=== PATIENT | male | born 1985 | race Caucasian/White ===

== ENCOUNTER → 2017-08-18 | Outpatient (CLI) | payer MEDICAID ==
[2017-08-18 16:20] LABS: HEMATOCRIT 44.8 % (42.0-52.0); HEMOGLOBIN 15.1 g/dl (13.5-17.5); MEAN CORPUSCULAR HEMOGLOBIN 29.5 pg (27.0-33.0); MEAN CORPUSCULAR HGB CONC 33.7 g/dl (32.0-36.5); MEAN CORPUSCULAR VOLUME 87.7 fl (80.0-96.0); PLATELET COUNT, AUTOMATED 333 10^3/uL (150-450); RED BLOOD COUNT 5.11 10^6/uL (4.30-6.10); RED CELL DISTRIBUTION WIDTH 14.8 % (11.5-14.5); WHITE BLOOD COUNT 10.3 10^3/uL (4.0-10.0)
[2017-08-18 17:08] LABS: ALBUMIN 4.1 GM/DL (3.2-5.2); ALBUMIN/GLOBULIN RATIO 0.89 (1.00-1.93); ALKALINE PHOSPHATASE 80 U/L (45-117); ALT/SGPT 92 U/L (12-78); ANION GAP 7 MEQ/L (8-16); AST/SGOT 24 U/L (7-37); BILIRUBIN,TOTAL 0.6 MG/DL (0.2-1.0); BLOOD UREA NITROGEN 24 MG/DL (7-18); CALCIUM LEVEL 9.1 MG/DL (8.5-10.1); CARBON DIOXIDE LEVEL 25 MEQ/L (21-32); CHLORIDE LEVEL 110 MEQ/L (98-107); CREATININE FOR GFR 1.03 MG/DL (0.70-1.30); GLOMERULAR FILTRATION RATE > 60.0 (>60); GLUCOSE, FASTING 84 MG/DL (70-100); POTASSIUM SERUM 4.4 MEQ/L (3.5-5.1); SODIUM LEVEL 142 MEQ/L (136-145); TOTAL PROTEIN 8.7 GM/DL (6.4-8.2)
[2017-08-18 18:16] LABS: CHLAMYDIA DNA AMPLIFICATION NEGATIVE (NEGATIVE); GC DNA AMPLIFICATION NEGATIVE (NEGATIVE)
[2017-08-19 10:45] LABS: HEPATITIS B SURFACE ANTIGEN NEGATIVE (NEGATIVE)
[2017-08-19 11:09] LABS: HIV 1&2 SCREEN CENTAUR NEGATIVE (NEGATIVE)
[2017-08-19 11:18] LABS: HEPATITIS C VIRUS ABY INDEX > 11.0 INDEX (<0.8)
== END ==
LOC: M LAB 15:21
DX: F11.20 Opioid dependence, uncomplicated (principal)
CPT/HCPCS: 93005

== ENCOUNTER → 2017-08-28 | Outpatient (CLI) | payer MEDICAID ==
[2017-08-28 13:37] LABS: BASO % 0.5 % (0.0-1.0); EOS # 0.3 10^3/uL (0.0-0.50); EOS % 3.8 % (0.0-3.0); HEMATOCRIT 41.1 % (42.0-52.0); HEMOGLOBIN 13.5 g/dl (13.5-17.5); IMMATURE GRANULOCYTE % 0.3 % (0-3.0); LYMPH # 2.3 10^3/uL (1.5-4.5); LYMPH % 29.6 % (24.0-44.0); MEAN CORPUSCULAR HEMOGLOBIN 29.3 pg (27.0-33.0); MEAN CORPUSCULAR HGB CONC 32.8 g/dl (32.0-36.5); MEAN CORPUSCULAR VOLUME 89.3 fl (80.0-96.0); MONO # 0.8 10^3/uL (0.0-0.8); MONO % 10.9 % (0.0-5.0); NEUTROPHILS # 4.2 10^3/uL (1.8-7.7); NEUTROPHILS % 54.9 % (36.0-66.0); PLATELET COUNT, AUTOMATED 263 10^3/uL (150-450); WHITE BLOOD COUNT 7.6 10^3/uL (4.0-10.0)
[2017-08-28 13:43] LABS: APPEARANCE, URINE CLEAR (CLEAR); BACTERIA, URINE AUTO NEGATIVE (NEGATIVE); BILIRUBIN, URINE AUTO NEGATIVE (NEGATIVE); BLOOD, URINE BLOOD NEGATIVE (NEGATIVE); COLOR, URINE YELLOW (YELLOW); GLUCOSE, URINE (UA) AUTO NEGATIVE (NEGATIVE); KETONE, URINE AUTO NEGATIVE (NEGATIVE); LEUKOCYTE ESTERASE, URINE AUTO NEGATIVE (NEGATIVE); MUCUS, URINE SMALL (NEGATIVE); NITRITE, URINE AUTO NEGATIVE (NEGATIVE); PROTEIN, URINE AUTO NEGATIVE (NEGATIVE); RBC, URINE AUTO 2 /HPF (0-3); SPECIFIC GRAVITY URINE AUTO 1.019 (1.002-1.035); SQUAMOUS EPITHELIAL CELL UR AU 0 /HPF (0-6); UROBILINOGEN, URINE AUTO 0.2 mg/dL (0.0-2.0); WBC, URINE AUTO 3 /HPF (0-3)
[2017-08-28 14:07] LABS: ALBUMIN 3.8 GM/DL (3.2-5.2); ALKALINE PHOSPHATASE 65 U/L (45-117); ALT/SGPT 101 U/L (12-78); ANION GAP 7 MEQ/L (8-16); AST/SGOT 103 U/L (7-37); BILIRUBIN,TOTAL 0.7 MG/DL (0.2-1.0); BLOOD UREA NITROGEN 16 MG/DL (7-18); CALCIUM LEVEL 8.8 MG/DL (8.5-10.1); CARBON DIOXIDE LEVEL 29 MEQ/L (21-32); CHLORIDE LEVEL 105 MEQ/L (98-107); GLOMERULAR FILTRATION RATE > 60.0 (>60); GLUCOSE, FASTING 131 MG/DL (70-100); POTASSIUM SERUM 4.2 MEQ/L (3.5-5.1); SODIUM LEVEL 141 MEQ/L (136-145); TOTAL PROTEIN 7.6 GM/DL (6.4-8.2)
[2017-08-28 14:13] LABS: HEPATITIS B SURFACE ANTIGEN NEGATIVE (NEGATIVE)
[2017-08-28 14:41] LABS: HEPATITIS B CORE ANTIBODY IGM NEGATIVE (NEGATIVE)
[2017-08-28 14:43] LABS: HEPATITIS A ANTIBODY IGM NEGATIVE (NEGATIVE)
[2017-08-28 16:20] LABS: HEPATITIS C VIRUS ABY INDEX > 11.0 INDEX (<0.8)
[2017-09-02 08:06] LABS: ALPHA 2-MACROGLOBULIN 185 mg/dL (110-276); ALT 98 IU/L (0-55); APOLIPOPROTEIN A-1 161 mg/dL (101-178); FIBROSIS SCORE 0.44 (0.00-0.21); FIBROSIS STAGE F1-F2 (.); GGT 60 IU/L (0-65); HAPTOGLOBIN <10 mg/dL (34-200); HEPATITIS A IgG TOTAL Negative (Negative); NECROINFLAM SCORE 0.61 (0.00-0.17); NECROINFLAMM GRADE A2-A3 (.); TOTAL BILIRUBIN 0.5 mg/dL (0.0-1.2)
[2017-09-02 10:13] LABS: HEPATITIS C QUANTITATION 800 IU/mL (.)
[2017-09-04 10:13] LABS: HCV RNA NAA QUALITATIVE Positive (Negative)
== END ==
LOC: M LAB 11:40
DX: Z79.891 Long term (current) use of opiate analgesic (principal)
CPT/HCPCS: 80053

== ENCOUNTER 2017-09-21 12:50 | Emergency (ER) | payer OTHER, MEDICAID ==
[2017-09-21 14:37] LABS: BASO % 0.3 % (0.0-1.0); EOS # 0.2 10^3/uL (0.0-0.50); EOS % 1.4 % (0.0-3.0); HEMATOCRIT 37.2 % (42.0-52.0); HEMOGLOBIN 12.5 g/dl (13.5-17.5); IMMATURE GRANULOCYTE % 0.4 % (0-3.0); LYMPH # 1.8 10^3/uL (1.5-4.5); MEAN CORPUSCULAR HEMOGLOBIN 29.8 pg (27.0-33.0); MEAN CORPUSCULAR HGB CONC 33.6 g/dl (32.0-36.5); MEAN CORPUSCULAR VOLUME 88.6 fl (80.0-96.0); MONO # 1.1 10^3/uL (0.0-0.8); MONO % 9.1 % (0.0-5.0); NEUTROPHILS # 9.4 10^3/uL (1.8-7.7); NEUTROPHILS % 74.8 % (36.0-66.0); PLATELET COUNT, AUTOMATED 213 10^3/uL (150-450); RED CELL DISTRIBUTION WIDTH 13.6 % (11.5-14.5); WHITE BLOOD COUNT 12.5 10^3/uL (4.0-10.0)
[2017-09-21 14:59] LABS: ALBUMIN 3.5 GM/DL (3.2-5.2); ALBUMIN/GLOBULIN RATIO 0.95 (1.00-1.93); ALKALINE PHOSPHATASE 70 U/L (45-117); ALT/SGPT 46 U/L (12-78); ANION GAP 8 MEQ/L (8-16); AST/SGOT 27 U/L (7-37); BILIRUBIN,DIRECT 0.3 MG/DL (0.0-0.2); BILIRUBIN,TOTAL 1.4 MG/DL (0.2-1.0); BLOOD UREA NITROGEN 13 MG/DL (7-18); CALCIUM LEVEL 8.4 MG/DL (8.5-10.1); CARBON DIOXIDE LEVEL 27 MEQ/L (21-32); CHLORIDE LEVEL 103 MEQ/L (98-107); CREATININE FOR GFR 0.85 MG/DL (0.70-1.30); GLOMERULAR FILTRATION RATE > 60.0 (>60); GLUCOSE, FASTING 82 MG/DL (70-100); SODIUM LEVEL 138 MEQ/L (136-145); TOTAL PROTEIN 7.2 GM/DL (6.4-8.2)
[2017-09-21] MEDS ORDERED: CEPHALEXIN 500 MG CAP PO (16:15)
[2017-09-26 00:12] LABS: HEPATITIS C QUANTITATION <15 IU/mL (.)
== END 2017-09-21 16:24 | disposition home or self-care (01) ==
LOC: M ED 12:50
DX: N49.2 Inflammatory disorders of scrotum (principal); B18.2 Chronic viral hepatitis C
CPT/HCPCS: 76870

== ENCOUNTER 2017-09-21 22:00 | Inpatient (IN) | payer OTHER ==
[2017-09-21 22:57] LABS: BASO % 0.2 % (0.0-1.0); EOS # 0.2 10^3/uL (0.0-0.50); EOS % 1.4 % (0.0-3.0); HEMATOCRIT 35.2 % (42.0-52.0); HEMOGLOBIN 11.8 g/dl (13.5-17.5); IMMATURE GRANULOCYTE % 0.4 % (0-3.0); LYMPH # 1.8 10^3/uL (1.5-4.5); LYMPH % 12.7 % (24.0-44.0); MEAN CORPUSCULAR HEMOGLOBIN 29.6 pg (27.0-33.0); MEAN CORPUSCULAR HGB CONC 33.5 g/dl (32.0-36.5); MEAN CORPUSCULAR VOLUME 88.4 fl (80.0-96.0); MONO # 1.4 10^3/uL (0.0-0.8); MONO % 10.1 % (0.0-5.0); NEUTROPHILS # 10.6 10^3/uL (1.8-7.7); NEUTROPHILS % 75.2 % (36.0-66.0); PLATELET COUNT, AUTOMATED 226 10^3/uL (150-450); RED BLOOD COUNT 3.98 10^6/uL (4.30-6.10); RED CELL DISTRIBUTION WIDTH 13.3 % (11.5-14.5); WHITE BLOOD COUNT 14.1 10^3/uL (4.0-10.0)
[2017-09-21] MEDS: KETOROLAC 30 MG/ML VIAL (J1885) IV (22:59)
[2017-09-21 23:06] LABS: ANION GAP 6 MEQ/L (8-16); BLOOD UREA NITROGEN 16 MG/DL (7-18); C REACTIVE PROTEIN QUANTITATIV 9.48 MG/DL (0.00-0.30); CALCIUM LEVEL 7.8 MG/DL (8.5-10.1); CARBON DIOXIDE LEVEL 27 MEQ/L (21-32); CHLORIDE LEVEL 105 MEQ/L (98-107); CREATININE FOR GFR 1.07 MG/DL (0.70-1.30); GLOMERULAR FILTRATION RATE > 60.0 (>60); GLUCOSE, FASTING 108 MG/DL (70-100); POTASSIUM SERUM 4.2 MEQ/L (3.5-5.1); SODIUM LEVEL 138 MEQ/L (136-145)
[2017-09-22] MEDS ORDERED: ISOVUE-370 76% 100ML VIAL (Q9967) As Ordered (00:12)
[2017-09-22] MEDS: MORPHINE 4 MG/ML 1ML VIAL/SYRINGE (J2270) IV ×3 (01:40→21:18)
[2017-09-22] MEDS: AMPICILLIN SOD/SULBACTAM SOD 3 GM in D5W MINI-BAG PLUS 100 ML IV ×4 (01:40→20:33)
[2017-09-22] MEDS: VANCOMYCIN HCL 1,000 MG, VIAL MATE ADAPTER 1 EACH in D5W 250 ML IV ×4 (04:40→15:37)
[2017-09-22] MEDS: NS 1,000 ML IV ×2 (04:44→21:18)
[2017-09-22] MEDS: KETOROLAC 30 MG/ML VIAL (J1885) IV ×3 (05:24→18:03)
[2017-09-22 07:41] LABS: ANION GAP 7 MEQ/L (8-16); BLOOD UREA NITROGEN 15 MG/DL (7-18); CALCIUM LEVEL 8.2 MG/DL (8.5-10.1); CARBON DIOXIDE LEVEL 29 MEQ/L (21-32); CHLORIDE LEVEL 104 MEQ/L (98-107); CREATININE FOR GFR 0.87 MG/DL (0.70-1.30); GLOMERULAR FILTRATION RATE > 60.0 (>60); GLUCOSE, FASTING 92 MG/DL (70-100); POTASSIUM SERUM 3.9 MEQ/L (3.5-5.1); SODIUM LEVEL 140 MEQ/L (136-145)
[2017-09-22 08:27] LABS: HEMATOCRIT 35.2 % (42.0-52.0); HEMOGLOBIN 11.9 g/dl (13.5-17.5); MEAN CORPUSCULAR HEMOGLOBIN 30.1 pg (27.0-33.0); MEAN CORPUSCULAR HGB CONC 33.8 g/dl (32.0-36.5); MEAN CORPUSCULAR VOLUME 89.1 fl (80.0-96.0); PLATELET COUNT, AUTOMATED 185 10^3/uL (150-450); RED BLOOD COUNT 3.95 10^6/uL (4.30-6.10); RED CELL DISTRIBUTION WIDTH 13.3 % (11.5-14.5); WHITE BLOOD COUNT 12.9 10^3/uL (4.0-10.0)
[2017-09-22] MEDS: NICOTINE 21MG/24HR 1 EA TRANSDERMAL TD (09:04)
[2017-09-22] MEDS: SENNA 8.6 MG TAB (SENOKOT) PO ×2 (10:28→20:34)
[2017-09-22] MEDS: ENOXAPARIN 40 MG/0.4 ML SYRINGE (J1650) SC (10:29)
[2017-09-22] MEDS: METHADONE 10 MG TAB (S0109) PO (10:29)
[2017-09-22 13:07] LABS: CHLAMYDIA DNA AMPLIFICATION NEGATIVE (NEGATIVE); GC DNA AMPLIFICATION NEGATIVE (NEGATIVE)
[2017-09-22] MEDS: ACETAMINOPHEN TAB 650MG DOSE (2X325MG) PO (17:37)
[2017-09-23] MEDS: VANCOMYCIN HCL 1,000 MG, VIAL MATE ADAPTER 1 EACH in D5W 250 ML IV ×4 (00:21→23:45)
[2017-09-23] MEDS: AMPICILLIN SOD/SULBACTAM SOD 3 GM in D5W MINI-BAG PLUS 100 ML IV ×4 (02:22→20:30)
[2017-09-23] MEDS: KETOROLAC 30 MG/ML VIAL (J1885) IV ×3 (02:27→16:25)
[2017-09-23] MEDS: MORPHINE 4 MG/ML 1ML VIAL/SYRINGE (J2270) IV ×3 (03:06→23:46)
[2017-09-23 06:35] LABS: HEMATOCRIT 34.4 % (42.0-52.0); HEMOGLOBIN 11.5 g/dl (13.5-17.5); MEAN CORPUSCULAR HEMOGLOBIN 29.6 pg (27.0-33.0); MEAN CORPUSCULAR HGB CONC 33.4 g/dl (32.0-36.5); MEAN CORPUSCULAR VOLUME 88.7 fl (80.0-96.0); PLATELET COUNT, AUTOMATED 195 10^3/uL (150-450); RED BLOOD COUNT 3.88 10^6/uL (4.30-6.10); RED CELL DISTRIBUTION WIDTH 13.2 % (11.5-14.5); WHITE BLOOD COUNT 11.9 10^3/uL (4.0-10.0)
[2017-09-23 06:51] LABS: ANION GAP 3 MEQ/L (8-16); BLOOD UREA NITROGEN 12 MG/DL (7-18); C REACTIVE PROTEIN QUANTITATIV 9.74 MG/DL (0.00-0.30); CALCIUM LEVEL 7.8 MG/DL (8.5-10.1); CARBON DIOXIDE LEVEL 30 MEQ/L (21-32); CHLORIDE LEVEL 107 MEQ/L (98-107); CREATININE FOR GFR 0.78 MG/DL (0.70-1.30); GLOMERULAR FILTRATION RATE > 60.0 (>60); GLUCOSE, FASTING 94 MG/DL (70-100); POTASSIUM SERUM 4.4 MEQ/L (3.5-5.1); SODIUM LEVEL 140 MEQ/L (136-145)
[2017-09-23] MEDS: SENNA 8.6 MG TAB (SENOKOT) PO ×2 (08:49→20:30)
[2017-09-23] MEDS: METHADONE 10 MG TAB (S0109) PO (08:50)
[2017-09-23] MEDS: NICOTINE 21MG/24HR 1 EA TRANSDERMAL TD (08:50)
[2017-09-23] MEDS: ENOXAPARIN 40 MG/0.4 ML SYRINGE (J1650) SC (08:50)
[2017-09-23] MEDS: NS 1,000 ML IV (15:12)
[2017-09-23 16:02] LABS: VANCOMYCIN LEVEL TROUGH 12.5 UG/ML (10.0-20.0)
[2017-09-23] MEDS: ACETAMINOPHEN TAB 650MG DOSE (2X325MG) PO (16:25)
[2017-09-24] MEDS: AMPICILLIN SOD/SULBACTAM SOD 3 GM in D5W MINI-BAG PLUS 100 ML IV ×4 (02:43→20:37)
[2017-09-24] MEDS: NS 1,000 ML IV ×2 (05:16→21:21)
[2017-09-24] MEDS: KETOROLAC 30 MG/ML VIAL (J1885) IV ×2 (05:52→20:38)
[2017-09-24 06:27] LABS: HEMATOCRIT 34.4 % (42.0-52.0); HEMOGLOBIN 11.6 g/dl (13.5-17.5); MEAN CORPUSCULAR HGB CONC 33.7 g/dl (32.0-36.5); MEAN CORPUSCULAR VOLUME 88.9 fl (80.0-96.0); PLATELET COUNT, AUTOMATED 220 10^3/uL (150-450); RED BLOOD COUNT 3.87 10^6/uL (4.30-6.10); WHITE BLOOD COUNT 11.4 10^3/uL (4.0-10.0)
[2017-09-24 06:45] LABS: ANION GAP 5 MEQ/L (8-16); BLOOD UREA NITROGEN 13 MG/DL (7-18); C REACTIVE PROTEIN QUANTITATIV 8.38 MG/DL (0.00-0.30); CALCIUM LEVEL 7.7 MG/DL (8.5-10.1); CARBON DIOXIDE LEVEL 27 MEQ/L (21-32); CHLORIDE LEVEL 108 MEQ/L (98-107); GLOMERULAR FILTRATION RATE > 60.0 (>60); GLUCOSE, FASTING 89 MG/DL (70-100); POTASSIUM SERUM 4.4 MEQ/L (3.5-5.1); SODIUM LEVEL 140 MEQ/L (136-145)
[2017-09-24] MEDS: ENOXAPARIN 40 MG/0.4 ML SYRINGE (J1650) SC (07:40)
[2017-09-24] MEDS: METHADONE 10 MG TAB (S0109) PO (07:41)
[2017-09-24] MEDS: NICOTINE 21MG/24HR 1 EA TRANSDERMAL TD (07:41)
[2017-09-24] MEDS: SENNA 8.6 MG TAB (SENOKOT) PO ×2 (07:41→20:37)
[2017-09-24] MEDS: VANCOMYCIN HCL 1,000 MG, VIAL MATE ADAPTER 1 EACH in D5W 250 ML IV ×3 (09:20→23:50)
[2017-09-24] MEDS: MORPHINE 4 MG/ML 1ML VIAL/SYRINGE (J2270) IV ×2 (11:01→16:28)
[2017-09-24] MEDS: LIDOCAINE 1% MDV 20ML VIAL SC (16:42)
[2017-09-24] MEDS: BUPIVACAINE 0.75% 10 ML VIAL SC (16:43)
[2017-09-25] MEDS: MORPHINE 4 MG/ML 1ML VIAL/SYRINGE (J2270) IV ×4 (00:09→23:50)
[2017-09-25] MEDS: AMPICILLIN SOD/SULBACTAM SOD 3 GM in D5W MINI-BAG PLUS 100 ML IV ×4 (01:44→19:30)
[2017-09-25] MEDS: NS 1,000 ML IV (01:45)
[2017-09-25 06:38] LABS: HEMATOCRIT 34.3 % (42.0-52.0); HEMOGLOBIN 11.5 g/dl (13.5-17.5); MEAN CORPUSCULAR HEMOGLOBIN 29.8 pg (27.0-33.0); MEAN CORPUSCULAR HGB CONC 33.5 g/dl (32.0-36.5); MEAN CORPUSCULAR VOLUME 88.9 fl (80.0-96.0); PLATELET COUNT, AUTOMATED 210 10^3/uL (150-450); RED BLOOD COUNT 3.86 10^6/uL (4.30-6.10); WHITE BLOOD COUNT 6.6 10^3/uL (4.0-10.0)
[2017-09-25 06:57] LABS: ANION GAP 6 MEQ/L (8-16); BLOOD UREA NITROGEN 12 MG/DL (7-18); CARBON DIOXIDE LEVEL 29 MEQ/L (21-32); CHLORIDE LEVEL 108 MEQ/L (98-107); CREATININE FOR GFR 0.71 MG/DL (0.70-1.30); GLOMERULAR FILTRATION RATE > 60.0 (>60); GLUCOSE, FASTING 83 MG/DL (70-100); POTASSIUM SERUM 4.2 MEQ/L (3.5-5.1); SODIUM LEVEL 143 MEQ/L (136-145)
[2017-09-25] MEDS ORDERED: SIMETHICONE 40MG/0.6ML DROPS 30ML As Ordered (07:09)
[2017-09-25] MEDS: NICOTINE 21MG/24HR 1 EA TRANSDERMAL TD (09:00)
[2017-09-25] MEDS: ENOXAPARIN 40 MG/0.4 ML SYRINGE (J1650) SC (09:17)
[2017-09-25] MEDS: SENNA 8.6 MG TAB (SENOKOT) PO ×2 (09:17→19:30)
[2017-09-25] MEDS: METHADONE 10 MG TAB (S0109) PO (09:19)
[2017-09-25] MEDS: VANCOMYCIN HCL 1,000 MG, VIAL MATE ADAPTER 1 EACH in D5W 250 ML IV ×3 (10:30→23:50)
[2017-09-25] MEDS: KETOROLAC 30 MG/ML VIAL (J1885) IV ×2 (14:43→22:57)
[2017-09-25 15:45] LABS: VANCOMYCIN LEVEL TROUGH 14.1 UG/ML (10.0-20.0)
[2017-09-25] MEDS: ACETAMINOPHEN TAB 650MG DOSE (2X325MG) PO (22:56)
[2017-09-25] MEDS: FUROSEMIDE 20 MG/2 ML VIAL (J1940) IV (23:49)
[2017-09-26] MEDS: AMPICILLIN SOD/SULBACTAM SOD 3 GM in D5W MINI-BAG PLUS 100 ML IV ×2 (01:54→08:30)
[2017-09-26] MEDS: KETOROLAC 30 MG/ML VIAL (J1885) IV (05:15)
[2017-09-26 06:02] LABS: HEMATOCRIT 36.6 % (42.0-52.0); HEMOGLOBIN 11.9 g/dl (13.5-17.5); MEAN CORPUSCULAR HEMOGLOBIN 29.2 pg (27.0-33.0); MEAN CORPUSCULAR HGB CONC 32.5 g/dl (32.0-36.5); MEAN CORPUSCULAR VOLUME 89.9 fl (80.0-96.0); PLATELET COUNT, AUTOMATED 253 10^3/uL (150-450); RED BLOOD COUNT 4.07 10^6/uL (4.30-6.10); RED CELL DISTRIBUTION WIDTH 12.9 % (11.5-14.5); WHITE BLOOD COUNT 5.7 10^3/uL (4.0-10.0)
[2017-09-26 06:26] LABS: ANION GAP 5 MEQ/L (8-16); BLOOD UREA NITROGEN 10 MG/DL (7-18); C REACTIVE PROTEIN QUANTITATIV 6.42 MG/DL (0.00-0.30); CALCIUM LEVEL 8.5 MG/DL (8.5-10.1); CARBON DIOXIDE LEVEL 33 MEQ/L (21-32); CHLORIDE LEVEL 105 MEQ/L (98-107); CREATININE FOR GFR 0.89 MG/DL (0.70-1.30); GLOMERULAR FILTRATION RATE > 60.0 (>60); GLUCOSE, FASTING 84 MG/DL (70-100); POTASSIUM SERUM 4.6 MEQ/L (3.5-5.1); SODIUM LEVEL 143 MEQ/L (136-145)
[2017-09-26] MEDS: VANCOMYCIN HCL 1,000 MG, VIAL MATE ADAPTER 1 EACH in D5W 250 ML IV (08:00)
[2017-09-26] MEDS: NICOTINE 21MG/24HR 1 EA TRANSDERMAL TD (08:30)
[2017-09-26] MEDS: ENOXAPARIN 40 MG/0.4 ML SYRINGE (J1650) SC (08:30)
[2017-09-26] MEDS: MORPHINE 4 MG/ML 1ML VIAL/SYRINGE (J2270) IV ×4 (08:31→22:04)
[2017-09-26] MEDS: ACETAMINOPHEN TAB 650MG DOSE (2X325MG) PO (08:31)
[2017-09-26] MEDS: SENNA 8.6 MG TAB (SENOKOT) PO ×2 (08:31→22:04)
[2017-09-26] MEDS: METHADONE 10 MG TAB (S0109) PO (08:32)
[2017-09-26] MEDS: LINEZOLID 600 MG in APPROPRIATE DILUENT 1 EA IV ×2 (11:18→22:03)
[2017-09-26] MEDS: IBUPROFEN 800 MG TAB PO ×2 (17:05→22:03)
[2017-09-27] MEDS: IBUPROFEN 800 MG TAB PO ×4 (04:25→22:14)
[2017-09-27] MEDS: MORPHINE 4 MG/ML 1ML VIAL/SYRINGE (J2270) IV ×4 (05:51→22:15)
[2017-09-27 06:03] LABS: HEMATOCRIT 35.8 % (42.0-52.0); MEAN CORPUSCULAR HEMOGLOBIN 29.7 pg (27.0-33.0); MEAN CORPUSCULAR HGB CONC 33.5 g/dl (32.0-36.5); MEAN CORPUSCULAR VOLUME 88.6 fl (80.0-96.0); PLATELET COUNT, AUTOMATED 248 10^3/uL (150-450); RED BLOOD COUNT 4.04 10^6/uL (4.30-6.10); RED CELL DISTRIBUTION WIDTH 12.9 % (11.5-14.5)
[2017-09-27 06:16] LABS: ANION GAP 7 MEQ/L (8-16); BLOOD UREA NITROGEN 13 MG/DL (7-18); C REACTIVE PROTEIN QUANTITATIV 3.47 MG/DL (0.00-0.30); CALCIUM LEVEL 8.2 MG/DL (8.5-10.1); CARBON DIOXIDE LEVEL 30 MEQ/L (21-32); CHLORIDE LEVEL 107 MEQ/L (98-107); CREATININE FOR GFR 0.81 MG/DL (0.70-1.30); GLOMERULAR FILTRATION RATE > 60.0 (>60); GLUCOSE, FASTING 79 MG/DL (70-100); POTASSIUM SERUM 4.2 MEQ/L (3.5-5.1); SODIUM LEVEL 144 MEQ/L (136-145)
[2017-09-27] MEDS: SENNA 8.6 MG TAB (SENOKOT) PO ×2 (07:54→22:15)
[2017-09-27] MEDS: ENOXAPARIN 40 MG/0.4 ML SYRINGE (J1650) SC (07:56)
[2017-09-27] MEDS: METHADONE 10 MG TAB (S0109) PO (07:56)
[2017-09-27] MEDS: NICOTINE 21MG/24HR 1 EA TRANSDERMAL TD (07:56)
[2017-09-27] MEDS: LINEZOLID 600 MG in APPROPRIATE DILUENT 1 EA IV ×2 (10:08→22:15)
[2017-09-28] MEDS: MORPHINE 4 MG/ML 1ML VIAL/SYRINGE (J2270) IV ×4 (05:28→16:46)
[2017-09-28] MEDS: IBUPROFEN 800 MG TAB PO ×4 (05:28→21:20)
[2017-09-28 06:34] LABS: HEMATOCRIT 36.6 % (42.0-52.0); MEAN CORPUSCULAR HEMOGLOBIN 28.8 pg (27.0-33.0); MEAN CORPUSCULAR HGB CONC 32.8 g/dl (32.0-36.5); PLATELET COUNT, AUTOMATED 217 10^3/uL (150-450); RED BLOOD COUNT 4.16 10^6/uL (4.30-6.10); RED CELL DISTRIBUTION WIDTH 13.8 % (11.5-14.5); WHITE BLOOD COUNT 13.6 10^3/uL (4.0-10.0)
[2017-09-28 06:48] LABS: ANION GAP 5 MEQ/L (8-16); C REACTIVE PROTEIN QUANTITATIV 0.97 MG/DL (0.00-0.30); CALCIUM LEVEL 9.1 MG/DL (8.5-10.1); CARBON DIOXIDE LEVEL 31 MEQ/L (21-32); CHLORIDE LEVEL 102 MEQ/L (98-107); GLOMERULAR FILTRATION RATE > 60.0 (>60); GLUCOSE, FASTING 127 MG/DL (70-100); POTASSIUM SERUM 4.4 MEQ/L (3.5-5.1); SODIUM LEVEL 138 MEQ/L (136-145)
[2017-09-28 06:57] LABS: BLOOD UREA NITROGEN 23 MG/DL (7-18)
[2017-09-28] MEDS: SENNA 8.6 MG TAB (SENOKOT) PO ×2 (08:50→21:19)
[2017-09-28] MEDS: ENOXAPARIN 40 MG/0.4 ML SYRINGE (J1650) SC (08:50)
[2017-09-28] MEDS: METHADONE 10 MG TAB (S0109) PO (08:51)
[2017-09-28] MEDS: NICOTINE 21MG/24HR 1 EA TRANSDERMAL TD (09:00)
[2017-09-28] MEDS: LINEZOLID 600 MG in APPROPRIATE DILUENT 1 EA IV ×2 (10:52→22:53)
[2017-09-29] MEDS: MORPHINE 4 MG/ML 1ML VIAL/SYRINGE (J2270) IV ×3 (00:02→10:21)
[2017-09-29] MEDS: IBUPROFEN 800 MG TAB PO ×2 (03:54→10:22)
[2017-09-29 06:20] LABS: HEMATOCRIT 35.4 % (42.0-52.0); HEMOGLOBIN 11.9 g/dl (13.5-17.5); MEAN CORPUSCULAR HEMOGLOBIN 29.6 pg (27.0-33.0); MEAN CORPUSCULAR HGB CONC 33.6 g/dl (32.0-36.5); MEAN CORPUSCULAR VOLUME 88.1 fl (80.0-96.0); PLATELET COUNT, AUTOMATED 242 10^3/uL (150-450); RED BLOOD COUNT 4.02 10^6/uL (4.30-6.10); RED CELL DISTRIBUTION WIDTH 12.9 % (11.5-14.5); WHITE BLOOD COUNT 5.4 10^3/uL (4.0-10.0)
[2017-09-29 06:34] LABS: ANION GAP 4 MEQ/L (8-16); BLOOD UREA NITROGEN 13 MG/DL (7-18); C REACTIVE PROTEIN QUANTITATIV 1.51 MG/DL (0.00-0.30); CALCIUM LEVEL 8.5 MG/DL (8.5-10.1); CARBON DIOXIDE LEVEL 31 MEQ/L (21-32); CHLORIDE LEVEL 107 MEQ/L (98-107); CREATININE FOR GFR 1.01 MG/DL (0.70-1.30); GLOMERULAR FILTRATION RATE > 60.0 (>60); GLUCOSE, FASTING 88 MG/DL (70-100); POTASSIUM SERUM 4.5 MEQ/L (3.5-5.1); SODIUM LEVEL 142 MEQ/L (136-145)
[2017-09-29] MEDS: ENOXAPARIN 40 MG/0.4 ML SYRINGE (J1650) SC (08:52)
[2017-09-29] MEDS: SENNA 8.6 MG TAB (SENOKOT) PO (08:53)
[2017-09-29] MEDS: METHADONE 10 MG TAB (S0109) PO (08:53)
[2017-09-29] MEDS: NICOTINE 21MG/24HR 1 EA TRANSDERMAL TD (08:57)
[2017-09-29] MEDS: LINEZOLID 600 MG in APPROPRIATE DILUENT 1 EA IV (10:22)
== END 2017-09-29 13:21 | disposition home or self-care (01) | DRG 501 ==
LOC: M MSPAV 09-26 12:40 → M ED INP 09-22 02:41 → M MSPAV 09-22 11:15 → M ED 22:00
PROC: 0V950ZZ Drainage of Scrotum, Open Approach (ICD-10-PCS; principal; 2017-09-24)
DX: N49.2 Inflammatory disorders of scrotum (principal); F11.10 Opioid abuse, uncomplicated; B95.62 Methicillin resistant Staphylococcus aureus infection as the cause of diseases classified elsewhere

== ENCOUNTER → 2018-09-07 | Outpatient (CLI) | payer OTHER ==
[~2018-09-07] MED LIST: KEFL500C17 PO; KETO10TAB PO; LINE600T11 PO; METH10CO PO; SENN1TAB10 PO
[2018-09-07 15:00] LABS: HEMATOCRIT 41.3 % (42.0-52.0); HEMOGLOBIN 13.2 g/dl (13.5-17.5); MEAN CORPUSCULAR HEMOGLOBIN 28.8 pg (27.0-33.0); PLATELET COUNT, AUTOMATED 256 10^3/uL (150-450); RED BLOOD COUNT 4.59 10^6/uL (4.30-6.10)
[2018-09-07 15:02] LABS: ALBUMIN 3.5 GM/DL (3.2-5.2); ALT/SGPT 23 U/L (12-78); BILIRUBIN,TOTAL 0.2 MG/DL (0.2-1.0); BLOOD UREA NITROGEN 17 MG/DL (7-18); CALCIUM LEVEL 8.5 MG/DL (8.5-10.1); CARBON DIOXIDE LEVEL 31 MEQ/L (21-32); CHLORIDE LEVEL 108 MEQ/L (98-107); CREATININE FOR GFR 1.08 MG/DL (0.70-1.30); GLOMERULAR FILTRATION RATE > 60.0 (>60); GLUCOSE, FASTING 99 MG/DL (70-100); POTASSIUM SERUM 4.5 MEQ/L (3.5-5.1); SODIUM LEVEL 142 MEQ/L (136-145); TOTAL PROTEIN 7.3 GM/DL (6.4-8.2)
[2018-09-07 16:24] LABS: CHLAMYDIA DNA AMPLIFICATION NEGATIVE (NEGATIVE); GC DNA AMPLIFICATION NEGATIVE (NEGATIVE)
--- NOTE | 2018-09-07 20:55 | ECGEPIP ---
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 Rule out hypokalemia, hypomagnesemia, hypocalcemia versus overdose on major tranquilizer versus antidepressant therapy. Electronically Signed on 09-07-2018 20:55:24 EDT by Dino Rios
[2018-09-08 09:48] LABS: HEPATITIS B SURFACE ANTIGEN NEGATIVE (NEGATIVE)
[2018-09-08 10:17] LABS: HIV 1&2 SCREEN CENTAUR NEGATIVE (NEGATIVE)
[2018-09-08 10:21] LABS: HEPATITIS C VIRUS ABY INDEX > 11.0 INDEX (<0.8)
== END ==
LOC: M LAB 12:35
PROVIDERS: ATTEND Family Medicine
DX: F14.20 Cocaine dependence, uncomplicated (principal)

== ENCOUNTER → 2018-10-01 | Outpatient (CLI) | payer OTHER ==
[~2018-10-01] MED LIST changes: +LINE1TAB6 PO; -LINE600T11 PO
--- NOTE | 2018-10-04 01:06 | ECGEPIP ---
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 CONSIDER HYPOCALCEMIA AND HYPOKALEMIA No remarkable changes but faster heart rate Last tracing on 09/07/2018 at 1:19 p.m. Electronically Signed on 10-04-2018 1:05:57 EDT by Smooth Burk
== END ==
LOC: M EKG 12:33
PROVIDERS: ATTEND Family Medicine
DX: F11.20 Opioid dependence, uncomplicated (principal)

== ENCOUNTER 2018-10-19 16:38 | Inpatient (IN) | payer OTHER ==
[~2018-10-19] VITALS: Ht 172.7 cm; Wt 96.3 kg
[2018-10-19] MEDS ORDERED: NS 1,000 ML IV ONE ×4 (16:45→21:15)
[2018-10-19] MEDS ORDERED: METH10TA2 PO (16:46)
[2018-10-19] MEDS ORDERED: CITA20TA7 PO (16:51)
[2018-10-19] MEDS ORDERED: CLON-412 PO (16:51)
[2018-10-19] MEDS ORDERED: TOPI25TA10 PO (16:51)
[2018-10-19] MEDS ORDERED: LORazepam 2 MG/ML VIAL (J2060) IV STA (16:53)
[2018-10-19] MEDS ORDERED: diphenhydrAMINE INJ 50MG/ML VIAL (J1200) IV STA (16:53)
[2018-10-19 18:28] LABS: BASO % 0.4 % (0.0-1.0); EOS # 0.1 10^3/uL (0.0-0.50); EOS % 2.5 % (0.0-3.0); HEMATOCRIT 38.1 % (42.0-52.0); HEMOGLOBIN 12.6 g/dl (13.5-17.5); LYMPH # 1.6 10^3/uL (1.5-4.5); LYMPH % 30.4 % (24.0-44.0); MEAN CORPUSCULAR HGB CONC 33.1 g/dl (32.0-36.5); MEAN CORPUSCULAR VOLUME 87.8 fl (80.0-96.0); MONO # 0.6 10^3/uL (0.0-0.8); MONO % 11.8 % (0.0-5.0); NEUTROPHILS # 2.8 10^3/uL (1.8-7.7); NEUTROPHILS % 54.7 % (36.0-66.0); PLATELET COUNT, AUTOMATED 198 10^3/uL (150-450); RED BLOOD COUNT 4.34 10^6/uL (4.30-6.10); WHITE BLOOD COUNT 5.2 10^3/uL (4.0-10.0)
--- NOTE | 2018-10-19 19:19 | REP ---
CHEST: SINGLE VIEW: There is no evidence of acute infiltrate. No pleural effusion is seen. The heart is normal in size. The mediastinal silhouette is unremarkable. The visualized osseous structures are intact. IMPRESSION: No acute pulmonary disease. Electronically Signed by Lewis Jones MD 10/21/2018 11:34 A
[2018-10-19 19:30] LABS: AMPHETAMINES LEVEL URINE NEGATIVE (NEGATIVE); BARBITURATES URINE NEGATIVE (NEGATIVE); BENZODIAZEPINES URINE NEGATIVE (NEGATIVE); CANNABINOIDS URINE NEGATIVE (NEGATIVE); COCAINE METABOLITE URINE NEGATIVE (NEGATIVE); METHADONE URINE POSITIVE (NEGATIVE); OPIATES URINE NEGATIVE (NEGATIVE); PHENCYCLIDINE URINE NEGATIVE (NEGATIVE)
[2018-10-19 19:31] LABS: ACETAMINOPHEN LEVEL < 2.0 UG/ML (10.0-30.0); ALBUMIN 3.8 GM/DL (3.2-5.2); ALT/SGPT 45 U/L (12-78); BILIRUBIN,DIRECT 0.1 MG/DL (0.0-0.2); BILIRUBIN,TOTAL 0.5 MG/DL (0.2-1.0); BLOOD UREA NITROGEN 24 MG/DL (7-18); CALCIUM LEVEL 8.4 MG/DL (8.5-10.1); CARBON DIOXIDE LEVEL 26 MEQ/L (21-32); CHLORIDE LEVEL 110 MEQ/L (98-107); CK-MB VALUE MASS 30.4 NG/ML (<3.6); CPK CREATINE PHOSPHOKINASE 1958 U/L (39-308); CREATININE FOR GFR 1.19 MG/DL (0.70-1.30); ETHYL ALCOHOL (ETHANOL) < 0.003 % (0.000-0.010); GLOMERULAR FILTRATION RATE > 60.0 (>60); GLUCOSE, FASTING 87 MG/DL (70-100); MB/CK RELATIVE INDEX 1.55 (< OR =4); POTASSIUM SERUM 3.7 MEQ/L (3.5-5.1); SALICYLATE LEVEL < 1.7 MG/DL (5.0-30.0); SODIUM LEVEL 142 MEQ/L (136-145); TOTAL PROTEIN 7.1 GM/DL (6.4-8.2); TROPONIN I < 0.02 NG/ML (< 0.10)
--- NOTE | 2018-10-19 20:27 | REPVR ---
EXAM: CT Head Without Contrast EXAM DATE/TIME: 10/19/2018 7:49 PM CLINICAL HISTORY: 33 years old, male; Altered mental status/memory loss; Confusion or disorientation; Additional info: Altered ms TECHNIQUE: Imaging protocol: Axial computed tomography images of the head without contrast. Radiation optimization: All CT scans at this facility use at least one of these dose optimization techniques: automated exposure control; mA and/or kV adjustment per patient size (includes targeted exams where dose is matched to clinical indication); or iterative reconstruction. COMPARISON: No relevant prior studies available. FINDINGS: Brain: No CT evidence of acute intracranial hemorrhage or acute territorial infarction. No significant mass effect or midline shift. Basal cisterns patent. Ventricles: Normal in size and configuration. Bones/joints: No acute osseous abnormality. Sinuses: Mild ethmoid and maxillary sinus mucosal thickening. Mastoid air cells: Grossly unremarkable. Soft tissues: Grossly unremarkable. IMPRESSION: 1. No CT evidence of acute intracranial pathology. 2. Additional findings, as above. Electronically signed by: Piyush Salas On 10/19/2018 20:27:22 PM
[2018-10-19] MEDS ORDERED: PHARMACY COMMENT (20:36)
[2018-10-19] MEDS ORDERED: ACETAMINOPHEN 500 MG TAB PO ONE (21:15)
[2018-10-19] MEDS ORDERED: ACETAMINOPHEN 325 MG TAB PO ONE (21:15)
[2018-10-19] MEDS: NS 1,000 ML IV SCH (21:40)
--- NOTE | 2018-10-19 21:43 | HPEPDOC ---
General Date of Admission 10/19/18 Date of Service: Oct 19, 2018 Primary Care Physician: A Attending Physician: FARTUN TSAI MD Chief Complaint The patient is a 33-year-old male admitted with a reason for visit of Overdose. Source: Patient, RN/MD Exam Limitations: Clinical conditions Timing/Duration: Unsure Severity: Severe Associated Symptoms: Diaphoresis, Fever, Increased agitation History of Present Illness 33 years old white male present-day from half hours with chief complaints of agitation, altered mental status, possible overdose. Patient initially was unresponsive, but O he is awake, alert, oriented 3 and reports that he took a drug JULIA tablet yesterday and also he was given his methadone today. Patient is poor historian. History was obtained from ED physician, Dr. Jones and the medical records. Patient denies taking any other medications are drugs at the present time. On presentation to ED, patient was very agitated altered mental status and hyperkinetic movements of his limbs and he was given a Benadryl. Patient also was found to be diaphoretic and hyperthermic on examination Home Medications Scheduled Citalopram Hydrobromide (Citalopram HBr) 20 Mg Tablet, 20 MG PO DAILY, (Reported) Clonidine HCl (Clonidine HCl) 0.1 Mg Tablet, 0.1 MG PO TID, (Reported) Methadone HCl (Methadone HCl) 10 Mg Tablet, 150 MG PO DAILY, (Reported) Topiramate (Topiramate) 25 Mg Tablet, 25 MG PO DAILY, (Reported) Miscellaneous Medications [Pharmacy Comment] , (Reported) NEED TO VERIFY MEDICATIONS WITH [facility] WHEN THEY OPEN IN THE MORNING Allergies Coded Allergies: No Known Allergies (Unverified , 09/21/17) Past Medical History Medical History History of psychiatric problems including depression and anxiety Surgical History None available Family History Significant Family History: No pertinent family hx Social History * Smoker: Denies Drugs: other (Julia) A-FIB/CHADSVASC A-FIB History Current/History of A-Fib/PAF?: No Review of Systems Constitutional: Reports: Fever Eyes: Denies: Pain, Vision change, Conjunctivae inflammation, Eyelid inflammation, Redness, Other ENT: Denies: Head Aches, Ear Pain, Dysphagia, Sinus Congestion, Post Nasal Drip, Sore Throat, Epistaxis, Other Symptoms Skin: Denies: Rash, Lesions, Jaundice, Bruising, Itching, Dry, Breakdown, Nail Changes, Other Pulmonary: Denies: Dyspnea, Cough, Pleuritic Chest Pain, Other Symptoms Cardiovascular: Denies: Chest Pain, Palpitations, Orthopnea, Paroxysmal Noc. Dyspnea, Edema, Lt Headedness, Other Symptoms Gastrointestinal: Denies: Nausea, Vomiting, Abdominal Pain, Diarrhea, Constipation, Melena, Hematochezia, Other Symptoms Genitourinary: Denies: Dysuria, Frequency, Incontinence, Hematuria, Retention, Other Symptoms Hematologic: Denies: Bruising, Bleeding Excessively, Petecchia, Purpura, Enlarged Lymph Nodes, Other Hematologic Musculoskeletal: Denies: Neck Pain, Back Pain, Shoulder Pain, Arm Pain, Hand Pain, Leg Pain, Foot Pain, Joint Pain, Muscle Pain, Spasms, Other Symptoms Neurological: Reports: Other Symptoms (altered mental status and hyperkinetic movements of his all limbs) Psych: Reports: Other Psych (agitation) Physical Examination General Exam: Positive: Alert, Other (, poor historian) Eye Exam: Positive: Other Eye Symptoms (. Pupils are not reactive to light. They're not myotic and not mydriatic) ENT Exam: Positive: Atraumatic, Mucous membr. moist/pink Neck Exam: Positive: Supple Chest Exam: Positive: Clear to auscultation, Normal air movement Heart Exam: Positive: Rate Normal, Normal S1, Normal S2 Abdomen Exam: Positive: Normal bowel sounds, Soft Neuro Exam: Positive: Normal Speech, Strength at 5/5 X4 ext, Other (. No clonus. Reflexes are depressed Atif) Psych Exam: Positive: Mental status NL, Oriented x 3 Vital Signs Vital Signs Date Time Temp Pulse Resp B/P (MAP) Pulse Ox O2 Delivery O2 Flow Rate FiO2 10/19/18 21:08 101.2 60 16 95 Nasal Cannula 4.0 10/19/18 20:46 173/77 (109) Laboratory Data Labs 24H Laboratory Tests 2 10/19/18 18:03: Bedside Glucose (Misc Panel) 102 10/19/18 18:05: Anion Gap 6L, Glomerular Filtration Rate > 60.0, Calcium Level 8.4L, Aspartate Amino Transf (AST/SGOT) 79H, Alanine Aminotransferase (ALT/SGPT) 45, Alkaline Phosphatase 73, Total Bilirubin 0.5, Direct Bilirubin 0.1, Total Creatine Kinase 1958H, Creatine Kinase MB 30.4H, Creatine Kinase MB Relative Index 1.55, Troponin I < 0.02, Total Protein 7.1, Albumin 3.8, Albumin/Globulin Ratio 1.15, Thyroid Stimulating Hormone (TSH) 1.970, Salicylates Level < 1.7L, Acetaminophen Level < 2.0L, Ethyl Alcohol Level < 0.003 10/19/18 18:06: Immature Granulocyte % (Auto) 0.2, White Blood Count 5.2, Red Blood Count 4.34, Hemoglobin 12.6L, Hematocrit 38.1L, Mean Corpuscular Volume 87.8, Mean Corpuscular Hemoglobin 29.0, Mean Corpuscular Hemoglobin Concent 33.1, Red Cell Distribution Width 13.2, Platelet Count 198, Neutrophils (%) (Auto) 54.7, Lymphocytes (%) (Auto) 30.4, Monocytes (%) (Auto) 11.8H, Eosinophils (%) (Auto) 2.5, Basophils (%) (Auto) 0.4, Neutrophils # (Auto) 2.8, Lymphocytes # (Auto) 1.6, Monocytes # (Auto) 0.6, Eosinophils # (Auto) 0.1, Basophils # (Auto) 0.0, Nucleated Red Blood Cells % (auto) 0.0, Lactic Acid Level 0.7 10/19/18 18:38: Urine Amphetamines Screen NEGATIVE, Urine Benzodiazepines Screen NEGATIVE, Urine Opiates Screen NEGATIVE, Urine Methadone Screen POSITIVEH, Urine Barbiturates Screen NEGATIVE, Urine Phencyclidine Screen NEGATIVE, Urine Cocaine Metabolite Screen NEGATIVE, Urine Cannabinoids Screen NEGATIVE 10/19/18 20:47: Bedside Glucose (Misc Panel) 82 10/19/18 21:03: POC pH (Misc Panel) 7.369, POC Base Excess (Misc Panel) -1.0, POC Saturated P ercent O2 (Misc) 93L, POC pO2 (Misc Panel) 68.0L, POC pCO2 (Misc Panel) 42.1, POC HCO3 (Misc Panel) 24.3, POC Total CO2 (Misc Panel) 26.0 10/19/18 21:15: Bedside Glucose (Misc Panel) 78 CBC/BMP Laboratory Tests 10/19/18 18:05 10/19/18 18:06 Red Blood Count 4.34, Mean Corpuscular Volume 87.8, Mean Corpuscular Hemoglobin 29.0, Mean Corpuscular Hemoglobin Concent 33.1, Red Cell Distribution Width 13.2, Neutrophils (%) (Auto) 54.7, Lymphocytes (%) (Auto) 30.4, Monocytes (%) (Auto) 11.8 H, Eosinophils (%) (Auto) 2.5, Basophils (%) (Auto) 0.4, Neutrophils # (Auto) 2.8, Lymphocytes # (Auto) 1.6, Monocytes # (Auto) 0.6, Eosinophils # (Auto) 0.1, Basophils # (Auto) 0.0 Problems (1) Serotonin syndrome Problem Text: 43 years old white male on antidepressants and recently took Julia ,presented with agitation, altered mental status and jerking movements of his both arms and legs, Patient was also found to be diaphoretic with hypothermia, most likely patient has possible serotonin syndrome secondary to antidepressant meds. He is taken at home with interaction with street drugs. . He does have elevated CPKs but now he is awake, alert, oriented 3, possibly needs only supportive care. Present control was called from ED and has recommended Ativan or Valium for agitation Patient also received 2 L of normal saline in ED and will continue normal saline at 100 mL per hour Bed rest Nothing by mouth except meds Continue IV fluids and normal saline 100 mL per hour Cooling blanket Follow pending blood cultures and lactic acid level Follow a.m. CPK levels DVT prophylaxis with bilateral SCDs Hold all home medication including citalopram. Patient will be admitted to ICU for close observation Continue O2 support Plan / VTE VTE Prophylaxis Ordered?: Yes FARTUN TSAI MD Oct 19, 2018 21:43
[2018-10-20] VITALS (18 sets, daily range): BP systolic 98–144; BP diastolic 57–83
[2018-10-20] MEDS ORDERED: ACETAMINOPHEN TAB 650MG DOSE (2X325MG) PO PRN
[2018-10-20] MEDS: NS 1,000 ML IV SCH (08:00)
--- NOTE | 2018-10-20 08:29 | IPNPDOC ---
Text Note Date of Service The patient was seen on 10/20/18. NOTE S:patient being seen for serotonin syndrome, polypharmacy drug overdose; states he feels better but is tired. no SOB, no N, no V, no CP, no diaphoresis. Sitter present and uneventful morning thus far. O: vitals as below General: pleasant, sleeping but easily awakens to verbal stimuli and responds appropriately, AAOX3, NAD HRRR LCTA no W/R/R Ext: no edema Abdomen soft NT ND NABS Labs this AM pending A/P: Serotonin syndrome due to polypharmacy and recreational drug overdose await repeat labs for further plan of care Once medically clear will need psych consult Elevated CPK - suspect due to serotonin syndrome and not rhabdo; IVF, repeat CPK pending VS,[facility], I+O VS, [facility], I+O Laboratory Tests 10/19/18 18:05 10/19/18 18:06 Red Blood Count 4.34, Mean Corpuscular Volume 87.8, Mean Corpuscular Hemoglobin 29.0, Mean Corpuscular Hemoglobin Concent 33.1, Red Cell Distribution Width 13.2, Neutrophils (%) (Auto) 54.7, Lymphocytes (%) (Auto) 30.4, Monocytes (%) (Auto) 11.8 H, Eosinophils (%) (Auto) 2.5, Basophils (%) (Auto) 0.4, Neutrophils # (Auto) 2.8, Lymphocytes # (Auto) 1.6, Monocytes # (Auto) 0.6, Eosinophils # (Auto) 0.1, Basophils # (Auto) 0.0 Vital Signs Date Time Temp Pulse Resp B/P (MAP) Pulse Ox O2 Delivery O2 Flow Rate FiO2 10/20/18 05:56 57 102/57 (72) 97 2.0 10/20/18 03:56 97.8 12 10/19/18 23:08 Nasal Cannula I&O- Last 24 Hours up to 6 AM 10/20/18 06:00 Intake Total 1500 ml Output Total 0 ml Balance 1500 ml TRAY CALVILLO DO Oct 20, 2018 07:39
[2018-10-20 08:39] LABS: HEMATOCRIT 37.6 % (42.0-52.0); HEMOGLOBIN 12.4 g/dl (13.5-17.5); MEAN CORPUSCULAR HEMOGLOBIN 29.3 pg (27.0-33.0); MEAN CORPUSCULAR VOLUME 88.9 fl (80.0-96.0); PLATELET COUNT, AUTOMATED 165 10^3/uL (150-450); RED BLOOD COUNT 4.23 10^6/uL (4.30-6.10); WHITE BLOOD COUNT 4.2 10^3/uL (4.0-10.0)
[2018-10-20] MEDS ORDERED: QUET5TAB PO (08:54)
[2018-10-20] MEDS ORDERED: QUEtiapine FUMARATE 50 MG TAB PO SCH (09:00)
[2018-10-20] MEDS ORDERED: CitaloPRAM (CeleXA) 20 MG TAB PO SCH (09:00)
[2018-10-20] MEDS ORDERED: TOPIRAMATE (TopAMAX) 25 MG TAB PO SCH (09:00)
[2018-10-20] MEDS: cloNIDine 0.1 MG TAB PO SCH ×2 (09:00→16:00)
--- NOTE | 2018-10-20 09:07 | ECGEPIP ---
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
--- NOTE | 2018-10-20 09:08 | ECGEPIP ---
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
[2018-10-20 09:28] LABS: ALBUMIN 3.4 GM/DL (3.2-5.2); ALT/SGPT 41 U/L (12-78); BILIRUBIN,TOTAL 0.8 MG/DL (0.2-1.0); BLOOD UREA NITROGEN 19 MG/DL (7-18); CALCIUM LEVEL 8.3 MG/DL (8.5-10.1); CARBON DIOXIDE LEVEL 25 MEQ/L (21-32); CHLORIDE LEVEL 115 MEQ/L (98-107); CPK CREATINE PHOSPHOKINASE 2258 U/L (39-308); CREATININE FOR GFR 0.94 MG/DL (0.70-1.30); GLOMERULAR FILTRATION RATE > 60.0 (>60); GLUCOSE, FASTING 74 MG/DL (70-100); POTASSIUM SERUM 3.9 MEQ/L (3.5-5.1); SODIUM LEVEL 144 MEQ/L (136-145); TOTAL PROTEIN 6.5 GM/DL (6.4-8.2)
[2018-10-20] MEDS ORDERED: METHADONE 10 MG TAB (S0109) PO ONE (12:00)
[2018-10-20] MEDS ORDERED: NS 1,000 ML IV SCH (15:00)
--- NOTE | 2018-10-20 17:15 | DS.PDOC ---
Discharge Summary General Date of Admission Oct 19, 2018 at 21:28 Date of Discharge 10/20/18 Primary Care Physician: Reji Mandel Attending Physician: TRAY CALVILLO DO Discharge Summary PROCEDURES PERFORMED DURING STAY:none ADMITTING DIAGNOSES: serotonin syndrome polypharmacy overdose DISCHARGE DIAGNOSES: Serotonin syndrome due to polypharmacy and recreational /prescription drug overdose Elevated CPK without rhabdomyalsis COMPLICATIONS/CHIEF COMPLAINT: Serotonin Syndrome. HISTORY OF PRESENT ILLNESS: 33 yo male brought to ED because of altered mental status, severe agitation, tartive dyskinesia movement from using methadone and recreational drug (JULIA vs bathsalts). See H&P for details HOSPITAL COURSE: patient admitted, placed in ICU and supportive care given with IVF. CPK initially elevated but showed decreasing trend. patient remained calm and appropriate during ICU stay and was cleared by psychiatry for discharge. He was given 140mg methadone (usual dose 150mg) and discussed with patient polypharmacy and medication interaction with street drug. Patient remained hemodynamically stable, AAOx3 and returned to normal baseline mental status. he is being discharge in stable condition DISCHARGE MEDICATIONS: Please see below. ALLERGIES: Please see below. PHYSICAL EXAMINATION ON DISCHARGE: VITAL SIGNS: Please see below. General: pleasant, NAD AAOx3 HRRR LCTA no W/R/R LABORATORY DATA: Please see below. ACTIVITY: as tolerated DIET: regular DISCHARGE PLAN: discharge to home DISCHARGE INSTRUCTIONS: 1. follow up with PCP in 5-7 days to recheck blood pressure and CPK levels 2. CPK level in 3-5 days 3. increase fluid intake 3-4 glasses water extra for next 2 days 4. avoid recreational drugs while on methadone 5. follow up as scheduled with methadone clinic DISCHARGE CONDITION: stable TIME SPENT ON DISCHARGE: 35 minutes. Vital Signs/I&Os Vital Signs Date Time Temp Pulse Resp B/P (MAP) Pulse Ox O2 Delivery O2 Flow Rate FiO2 10/20/18 14:56 67 104/72 (83) 94 10/20/18 11:56 98.7 20 10/20/18 08:56 2.0 10/19/18 23:08 Nasal Cannula I&O- Last 24 Hours up to 6 AM 10/20/18 06:00 Intake Total 1500 ml Output Total 0 ml Balance 1500 ml Laboratory Data Labs 24H Laboratory Tests 2 10/19/18 18:03: Bedside Glucose (Misc Panel) 102 10/19/18 18:05: Anion Gap 6L, Glomerular Filtration Rate > 60.0, Calcium Level 8.4L, Aspartate Amino Transf (AST/SGOT) 79H, Alanine Aminotransferase (ALT/SGPT) 45, Alkaline Phosphatase 73, Total Bilirubin 0.5, Direct Bilirubin 0.1, Total Creatine Kinase 1958H, Creatine Kinase MB 30.4H, Creatine Kinase MB Relative Index 1.55, Troponin I < 0.02, Total Protein 7.1, Albumin 3.8, Albumin/Globulin Ratio 1.15, Thyroid Stimulating Hormone (TSH) 1.970, Salicylates Level < 1.7L, Acetaminophen Level < 2.0L, Ethyl Alcohol Level < 0.003 10/19/18 18:06: Immature Granulocyte % (Auto) 0.2, White Blood Count 5.2, Red Blood Count 4.34, Hemoglobin 12.6L, Hematocrit 38.1L, Mean Corpuscular Volume 87.8, Mean Corpuscular Hemoglobin 29.0, Mean Corpuscular Hemoglobin Concent 33.1, Red Cell Distribution Width 13.2, Platelet Count 198, Neutrophils (%) (Auto) 54.7, Lymphocytes (%) (Auto) 30.4, Monocytes (%) (Auto) 11.8H, Eosinophils (%) (Auto) 2.5, Basophils (%) (Auto) 0.4, Neutrophils # (Auto) 2.8, Lymphocytes # (Auto) 1.6, Monocytes # (Auto) 0.6, Eosinophils # (Auto) 0.1, Basophils # (Auto) 0.0, Nucleated Red Blood Cells % (auto) 0.0, Lactic Acid Level 0.7 10/19/18 18:38: Urine Amphetamines Screen NEGATIVE, Urine Benzodiazepines Screen NEGATIVE, Urine Opiates Screen NEGATIVE, Urine Methadone Screen POSITIVEH, Urine Barbiturates Screen NEGATIVE, Urine Phencyclidine Screen NEGATIVE, Urine Cocaine Metabolite Screen NEGATIVE, Urine Cannabinoids Screen NEGATIVE 10/19/18 20:47: Bedside Glucose (Misc Panel) 82 10/19/18 21:03: POC pH (Misc Panel) 7.369, POC Base Excess (Misc Panel) -1.0, POC Saturated Percent O2 (Misc) 93L, POC pO2 (Misc Panel) 68.0L, POC pCO2 (Misc Panel) 42.1, POC HCO3 (Misc Panel) 24.3, POC Total CO2 (Misc Panel) 26.0 10/19/18 21:15: Bedside Glucose (Misc Panel) 78 10/19/18 22:50: Lactic Acid Level 0.5 10/20/18 08:27: Nucleated Red Blood Cells % (auto) 0.0, Anion Gap 4L, Glomerular Filtration Rate > 60.0, Blood Urea Nitrogen 19H, Creatinine 0.94, Sodium Level 144, Potassium Level 3.9, Chloride Level 115H, Carbon Dioxide Level 25, Calcium Level 8.3L, Aspartate Amino Transf (AST/SGOT) 69H, Alanine Aminotransferase (ALT/SGPT) 41, Total Creatine Kinase 2258H, Alkaline Phosphatase 65, Total Bilirubin 0.8#, Total Protein 6.5, Albumin 3.4, Albumin/Globulin Ratio 1.10 10/20/18 09:31: Methicillin-Resist S.aureus DNA PCR NOT DETECTED 10/20/18 15:39: Total Creatine Kinase 1725H CBC/BMP Laboratory Tests 10/19/18 18:05 10/19/18 18:06 Red Blood Count 4.34, Mean Corpuscular Volume 87.8, Mean Corpuscular Hemoglobin 29.0, Mean Corpuscular Hemoglobin Concent 33.1, Red Cell Distribution Width 13.2, Neutrophils (%) (Auto) 54.7, Lymphocytes (%) (Auto) 30.4, Monocytes (%) (Auto) 11.8 H, Eosinophils (%) (Auto) 2.5, Basophils (%) (Auto) 0.4, Neutrophils # (Auto) 2.8, Lymphocytes # (Auto) 1.6, Monocytes # (Auto) 0.6, Eosinophils # (Auto) 0.1, Basophils # (Auto) 0.0 10/20/18 08:27 Red Blood Count 4.23 L, Mean Corpuscular Volume 88.9, Mean Corpuscular Hemoglobin 29.3, Mean Corpuscular Hemoglobin Concent 33.0, Red Cell Distribution Width 13.3, Calcium Level 8.3 L, Aspartate Amino Transf (AST/SGOT) 69 H, Alanine Aminotransferase (ALT/SGPT) 41, Total Creatine Kinase 2258 H, Alkaline Phosphatase 65, Total Bilirubin 0.8 #, Total Protein 6.5, Albumin 3.4 FSBS Laboratory Tests Test 10/19/18 18:03 10/19/18 20:47 10/19/18 21:15 Range/Units Bedside Glucose (Misc Panel) 102 82 78 70-105 MG/DL Microbiology Microbiology 10/19/18 Blood Culture, Received Pending 10/19/18 Blood Culture, Received Pending Discharge Medications Scheduled Citalopram Hydrobromide (Citalopram HBr) 20 Mg Tablet, 20 MG PO DAILY, (Reported) THIS RX HAS NOT BEEN PICKED UP FROM PHARMACY SINCE JULY 2018 Clonidine HCl (Clonidine HCl) 0.1 Mg Tablet, 0.1 MG PO TID, (Reported) THIS RX WAS NEVER PICKED UP FROM PHARMACY Methadone HCl (Methadone HCl) 10 Mg Tablet, 50 MG PO ASDIRECTED, (Reported) PATIENT STATES HE RECEIVED 50MG METHADONE AT [facility]. NO RECORD OF METHADONE BEING FILLED AT [facility] OR [facility] IN THE PAST Quetiapine Fumarate (Quetiapine Fumarate) 50 Mg Tablet, 50 MG PO DAILY, (Reported) Topiramate (Topiramate) 25 Mg Tablet, 25 MG PO DAILY, (Reported) Miscellaneous Medications [Pharmacy Comment] , (Reported) VERIFIED MEDICATIONS WITH BOTH [facility] AND [facility] Allergies Coded Allergies: No Known Allergies (Unverified , 09/21/17) TRAY CALVILLO DO Oct 20, 2018 17:15
== END 2018-10-20 18:42 | disposition home or self-care (01) | DRG 812 ==
LOC: M ED 16:38 → EDBD 16:38 → M ED INP 21:28 → EEVIPCON 21:28 → M ICU 23:55
PROVIDERS: ADMIT Internal Medicine; ATTEND Family Medicine
DX: T43.641A Poisoning by ecstasy, accidental (unintentional), initial encounter (principal); F32.9 Major depressive disorder, single episode, unspecified; F41.9 Anxiety disorder, unspecified; T50.991A Poisoning by other drugs, medicaments and biological substances, accidental (unintentional), initial encounter; R68.0 Hypothermia, not associated with low environmental temperature; G24.01 Drug induced subacute dyskinesia; Y92.009 Unspecified place in unspecified non-institutional (private) residence as the place of occurrence of the external cause

== ENCOUNTER 2018-10-26 16:08 | Emergency (ER) | payer OTHER ==
[~2018-10-26] VITALS: Ht 175.3 cm; Wt 94.4 kg
[~2018-10-26 16:08] MED LIST changes: +CITA20TA7 PO; +CLON-412 PO; +METH10TA2 PO; +PHARMACY COMMENT; +QUET5TAB PO; +TOPI25TA10 PO
[2018-10-26] MEDS ORDERED: KETOROLAC 30 MG/ML VIAL (J1885) IV ONE (17:45)
[2018-10-26] MEDS ORDERED: NS 1,000 ML IV ONE (17:45)
[2018-10-26 18:34] LABS: BASO % 0.6 % (0.0-1.0); EOS # 0.2 10^3/uL (0.0-0.50); EOS % 4.8 % (0.0-3.0); HEMATOCRIT 42.9 % (42.0-52.0); HEMOGLOBIN 14.1 g/dl (13.5-17.5); LYMPH # 2.1 10^3/uL (1.5-4.5); LYMPH % 41.3 % (24.0-44.0); MEAN CORPUSCULAR HEMOGLOBIN 29.3 pg (27.0-33.0); MEAN CORPUSCULAR HGB CONC 32.9 g/dl (32.0-36.5); MONO # 0.5 10^3/uL (0.0-0.8); NEUTROPHILS # 2.2 10^3/uL (1.8-7.7); NEUTROPHILS % 44.1 % (36.0-66.0); PLATELET COUNT, AUTOMATED 204 10^3/uL (150-450); RED BLOOD COUNT 4.82 10^6/uL (4.30-6.10)
[2018-10-26 19:02] LABS: BILIRUBIN,DIRECT 0.1 MG/DL (0.0-0.2); BILIRUBIN,TOTAL 0.2 MG/DL (0.2-1.0); TOTAL PROTEIN 7.9 GM/DL (6.4-8.2)
--- NOTE | 2018-10-26 19:07 | REPVR ---
EXAM: CT Abdomen and Pelvis Without Contrast EXAM DATE/TIME: 10/26/2018 5:58 PM CLINICAL HISTORY: 33 years old, male; Abdominal pain; Flank; Right; Additional info: Right flank pain, llq pain TECHNIQUE: Imaging protocol: Axial computed tomography images of the abdomen and pelvis without contrast. Coronal and sagittal reformatted images were created and reviewed. Radiation optimization: All CT scans at this facility use at least one of these dose optimization techniques: automated exposure control; mA and/or kV adjustment per patient size (includes targeted exams where dose is matched to clinical indication); or iterative reconstruction. COMPARISON: CT ABD/PEL W/IV CONTRAST ONLY 09/22/2017 12:12 AM FINDINGS: Liver: Normal. No mass. Gallbladder and bile ducts: Normal. No calcified stones. No ductal dilation. Pancreas: Normal. No ductal dilation. Spleen: Normal. No splenomegaly. Adrenals: Normal. No mass. Kidneys and ureters: Multiple bilateral non obstructing renal calculi are demonstrated measuring up to 3 mm in the right kidney. Stomach and bowel: There is increased feces throughout the colon consistent with constipation. Appendix: No evidence of appendicitis. Intraperitoneal space: Normal. No free air. No significant fluid collection. Vasculature: Normal. No abdominal aortic aneurysm. Lymph nodes: Normal. No enlarged lymph nodes. Bladder: Unremarkable as visualized. Reproductive: Unremarkable as visualized. Bones/joints: No acute fracture. No dislocation. Soft tissues: Unremarkable. IMPRESSION: 1. Multiple bilateral non obstructing renal calculi are demonstrated measuring up to 3 mm in the right kidney. 2. There is increased feces throughout the colon consistent with constipation. Electronically signed by: Gerald Perrin On 10/26/2018 19:06:57 PM
[2018-10-26] MEDS ORDERED: MAGNESIUM CITRATE 300 ML BTL PO ONE (19:30)
[2018-10-26] MEDS ORDERED: GLYCERIN ADULT SUPP PR ONE (19:30)
[2018-10-26 19:38] VITALS: BP 110/59
== END 2018-10-26 19:51 | disposition home or self-care (01) ==
LOC: M ED 16:08
DX: K59.00 Constipation, unspecified (principal); B19.20 Unspecified viral hepatitis C without hepatic coma; Z87.442 Personal history of urinary calculi; F17.200 Nicotine dependence, unspecified, uncomplicated; F19.10 Other psychoactive substance abuse, uncomplicated; Z79.899 Other long term (current) drug therapy
CPT/HCPCS: 36415; 74176; 80047; 80076; 81001; 83690; 85025; 96374; 99284; J1885